=== PATIENT | female | born 1955 | race African-American/Black ===

== ENCOUNTER 2018-08-29 08:10 | Observation (INO) | payer SELFPAY ==
[2018-08-29 09:57] LABS: #Basophils 0.1 thou/uL (0.0-0.2); #Eosinphils 0.2 thou/uL (0.0-0.7); #Lymphocytes 2.1 thou/uL (1.20-3.40); #Monocytes 0.5 thou/uL (0.11-0.59); #Neutrophils 5.8 thou/uL (1.40-6.50); %Basophils 0.6 % (0.0-1.0); %Eosinophils 2.3 % (0.0-10.0); %Lymphocytes 24.4 % (21.0-51.0); %Monocytes 5.6 % (0.0-10.0); %Neutrophils 67.2 % (42.0-75.0); Hemoglobin 12.8 g/dL (12.0-16.0); Mean Corpuscular HGB CONC 32.1 g/dL (32.0-36.0); Mean Corpuscular Volume 93.7 fL (78.0-98.0); Mean Platelet Volume 7.4 fL (7.4-10.4); Platelet Count 261 thou/uL (130-400); RBC Distribution Width 12.8 % (11.5-14.5); Red Blood Cell (RBC) Count 4.27 mill/uL (4.20-5.40); White Blood Cell (WBC) Count 8.7 thou/uL (4.8-10.8)
[2018-08-29] MEDS ORDERED: Albuterol Sulfate HFA (OR ONLY) ONE (10:25)
[2018-08-29] MEDS ORDERED: Fentanyl 100 MCG/2 ML VIAL ONE ×2 (10:41→13:03)
[2018-08-29] MEDS ORDERED: Ondansetron PF 4 MG/2 ML Vial ONE (11:18)
[2018-08-29] MEDS ORDERED: PROVENTIL INHALER 6.7 G (200 INHALATIONS) ONE (11:18)
[2018-08-29] MEDS ORDERED: Lidocaine 1% PF 5 ML VIAL ONE (11:18)
[2018-08-29] MEDS ORDERED: PROPOFOL 200 MG/20 ML VIAL ONE (11:18)
[2018-08-29] MEDS ORDERED: Glycopyrrolate 0.2 MG/ML 5 ML SYRINGE ONE (11:18)
[2018-08-29] MEDS ORDERED: Ketorolac Tromethamine 30 MG/ML VIAL ONE (11:18)
[2018-08-29] MEDS ORDERED: Rocuronium Bromide 10 MG/ML (10ML VIAL) ONE (11:18)
[2018-08-29] MEDS ORDERED: Dexamethasone 20 MG/5 ML VIAL ONE (11:18)
[2018-08-29] MEDS ORDERED: Bupivacaine HCl 0.5%/Epinephrine 1:200,000/PF 30 ml Vial ONE (11:26)
[2018-08-29 11:32] LABS: Chloride 99 mmol/L (98-107); Potassium 4.3 mmol/L (3.5-5.1); Sodium 131 mmol/L (136-145)
[2018-08-29 11:33] LABS: Calcium 8.8 mg/dL (7.8-10.44); Glucose 127 mg/dL (80-115)
[2018-08-29 11:34] LABS: Anion Gap 11 mmol/L (10-20); Carbon Dioxide 25 mmol/L (23-31)
[2018-08-29 11:36] LABS: Calc. Creatinine Clearance 0 mL/min (70-130); Estimated GFR-MDRD Greater than 90
[2018-08-29 11:37] LABS: BUN (Urea Nitrogen) 8 mg/dL (9.8-20.1)
--- NOTE | 2018-08-29 12:00 | RAD ---
RIGHT ANKLE THREE VIEWS WITH INTRAOPERATIVE FLUOROSCOPY: HISTORY: Fracture. FINDINGS: Intraoperative fluoroscopy was provided for internal fixation, as performed by Dr. Mix. Spot fluoro scopic images show a long compression plate and multiple screws transfixing the distal fibula, in jesi tomic alignment. Fluoroscopy time was 10.9 seconds. POS: CET
[2018-08-29] MEDS ORDERED: Albuterol Sulfate 1.25 MG/3 ML NEB ONE (12:16)
--- NOTE | 2018-08-29 14:36 | OP ---
DATE OF PROCEDURE: 08/29/2018 PREOPERATIVE DIAGNOSIS: Closed right lateral malleolar ankle fracture with open mortise. POSTOPERATIVE DIAGNOSIS: Closed right lateral malleolar ankle fracture with open mortise. PROCEDURE PERFORMED: 1. Open reduction and internal fixation of right lateral malleolar fracture. 2. Placement of short posterior splint to the right lower extremity. TORTILLA MAKER: Chano Rivas PA-C. ESTIMATED BLOOD LOSS: This lady had 30 mL of blood loss. ANESTHESIA: She had general anesthetic. COMPLICATIONS: There were no complications. IMPLANT: We implanted a Synthes distal fibular locking plate for fixation. DISPOSITION: She did go to recovery room in stable condition. INDICATIONS: This is a 63-year-old female, who fell coming out of [facility] Monday and suffered a right lateral malleolar ankle fracture with a near dislocation. At this time, she is presenting for fixation of her fracture. DESCRIPTION OF PROCEDURE: After all appropriate consent forms were explained and signed, she was taken to the operative room and at this time was given general anesthetic. Tourniquet was placed on the right thigh, and leg was then prepped and draped in standard surgical fashion. Limb was exsanguinated and tourniquet taken to 300 mmHg. A 15 blade was used to incise down through skin. Bovie was used to coagulate any brisk venous bleeding. At this time, soft tissues were swept off the underlying fascia where the fracture had occurred. The fascia was busted open, and there was a large amount of blood and clot in this region. We then used Bovie to cut down on the periosteum and then took anterior and posterior sleeves of both the proximal and distal fracture fragments. We then exposed the entire fracture line, used a curette and pickups to pull out the clot. We thoroughly irrigated and dried. We then used 2 lion-jaw clamps to reduce our fracture. We then put two 2.7 mm cortical screws in lag fashion across our long spiral fracture to reduce this anatomically. We then placed a Synthes distal fibular locking plate on the fibula, placed 3 bicortical screws proximal to the fracture line and multiple locking screws distally into the distal fragment. C-arm was brought in to confirm anatomic reduction and placement of all hardware in AP, mortise and lateral planes. We then thoroughly irrigated and dried. We closed our periosteal sleeve as best as we could over top of the plate, followed by 2-0 Vicryl and surgical ayaka on the skin. A bulky sterile soft tissue dressing was applied and a short-leg splint was placed onto the right lower extremity. The tourniquet was let down once the soft tissue dressing had been applied. Toes pinked up nicely. She was awakened and taken to recovery room in stable condition. All counts were correct at the end of the case, and she did receive preoperative IV antibiotics. Job ID: [id number]
[2018-08-29] MEDS ORDERED: Lactated Ringer's 1,000 ML IV SCH ×2 (20:00→20:15)
[2018-08-29] MEDS ORDERED: Acetaminophen/Codeine 30-300mg Tablet PO PRN (20:01)
[2018-08-29] MEDS ORDERED: Fentanyl 100 MCG/2 ML VIAL SLOW IVP PRN (20:03)
[2018-08-29] MEDS ORDERED: Sodium Chloride 0.9% (PF) 10 ML VIAL FS PRN (21:04)
[2018-08-29] MEDS ORDERED: Zolpidem Tartrate 5 MG TAB PO PRN (21:06)
[2018-08-29] MEDS: ceFAZolin 1 GM/D5W 1 GM in Premix Bag 1 BAG IVPB SCH (22:08)
[2018-08-30 01:29] VITALS: BMI 38.2
[2018-08-30] MEDS: ceFAZolin 1 GM/D5W 1 GM in Premix Bag 1 BAG IVPB SCH ×2 (05:18→11:47)
[2018-08-30] MEDS: Acetaminophen/Codeine 30-300mg Tablet PO PRN ×2 (05:29→09:27)
[2018-08-30 08:49] VITALS: BP 126/73; TEMP 98.4
[2018-08-30] MEDS ORDERED: Amlodipine 5 MG TAB PO SCH (09:00)
[2018-08-30] MEDS ORDERED: Pantoprazole 40 MG VIAL IVP SCH (09:00)
[2018-08-30] MEDS ORDERED: Hydrochlorothiazide 25 MG TAB PO SCH (09:00)
[2018-08-30] MEDS ORDERED: buPROPion 75 MG TAB PO SCH (09:00)
[2018-08-30] MEDS: Sucralfate 1 GM TAB PO SCH ×2 (09:14→11:47)
[2018-08-30] MEDS ORDERED: Clopidogrel Bisulfate 75 MG TAB ONE (10:41)
== END 2018-08-30 13:00 | disposition home or self-care (01) ==
LOC: SDC 08:10 → SURG B 19:35
PROVIDERS: ADMIT Orthopaedic Surgery; ATTEND Orthopaedic Surgery
PROC: 0QSJ04Z Reposition Right Fibula with Internal Fixation Device, Open Approach (ICD-10-PCS; principal; 2018-08-29)
DX: S82.61XA Displaced fracture of lateral malleolus of right fibula, initial encounter for closed fracture (principal); I10 Essential (primary) hypertension; F32.9 Major depressive disorder, single episode, unspecified; Z79.899 Other long term (current) drug therapy; W19.XXXA Unspecified fall, initial encounter; Y92.22 Religious institution as the place of occurrence of the external cause
CPT/HCPCS: 76000; 80048; 85025; 90471; 90732; 93005; 93010; 96365; 96366; 96375; C1713; C9113; G0009; G0378; J0670; J0690; J1100; J1885; J2001; J2405; J2704; J3010